=== PATIENT | male | born 1965 | race Caucasian/White ===

== ENCOUNTER 2023-03-11 10:30 | Emergency (ER) | payer BC ==
[2023-03-11] MEDS ORDERED: Lidocaine 1% with EPINEPHrine 1:100,000 50 ML MDV INJECT ONE (11:39)
[2023-03-11] MEDS ORDERED: Diphtheria,Pertussis(Acell),Tetanus Vaccine 0.5 ML Syringe IM ONE (13:03)
[2023-03-11] MEDS ORDERED: Bacitracin Oint 1 GM U/D Packet TOP ONE (13:04)
== END 2023-03-11 13:25 | disposition home or self-care (01) ==
LOC: JP.ED 10:30
DX: S51.811A Laceration without foreign body of right forearm, initial encounter (principal); Z95.0 Presence of cardiac pacemaker; Z87.891 Personal history of nicotine dependence; Z79.82 Long term (current) use of aspirin; Z79.899 Other long term (current) drug therapy; W29.3XXA Contact with powered garden and outdoor hand tools and machinery, initial encounter
CPT/HCPCS: 12002; 90471; 90715; 99282-25